=== PATIENT | male | born 1980 | race Caucasian/White ===

== ENCOUNTER 2016-08-20 13:31 | Emergency (ER) | payer BC ==
[2016-08-20 13:48] VITALS: BP 130/76
--- NOTE | 2016-08-20 15:01 | ED ---
Back Pain - HPI Summary HPI Summary: patient complains of intermittent bilateral flank pain X 2 weeks. he states it is worse on the L side and is usually worse upon wakening. denies urinary symptoms. pain does not radiate and feels like a deep ache. 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 denies other symptoms. denies fever, LYNNE , trauma or injury, weakness or limited ROM. denies health problems and takes no medications. this is the first time he has experienced this. - History of Current Complaint Chief Complaint: UCBackPain Stated Complaint: LOWER BACK PAIN Time Seen by Provider: 08/20/16 13:43 Hx Obtained From: Patient Onset/Duration: Sudden Onset Onset/Duration: Started Weeks Ago - 2 weeks ago Timing: Intermittent Back Pain Location: Is Discrete @ - left and right flank pain Pain Intensity: 5 Pain Scale Used: 0-10 Numeric Character: Sharp, Aching Aggravating Symptom(s): Movement Alleviating Symptom(s): Nothing Associated Signs And Symptoms: Positive: Negative - Risk Factors AAA Risk Factors: Negative TAD Risk Factors: Negative Cauda Equina Risk Factors: Negative Epidural Abscess Risk Factors: Negative - Allergies/Home Medications Allergies/Adverse Reactions: Allergies Allergy/AdvReac Type Severity Reaction Status Date / Time environmental Allergy Eyes Uncoded 08/20/16 13:48 Itchy/Swollen/Red/Watery Home Medications: Home Medications Beclomethasone Dipropionate (N [Qnasl] 80 mcg NA 08/20/16 [History] LevoCETirizine TAB (NF) [Xyzal TAB (NF)] 5 mg PO DAILY 08/20/16 [History Confirmed 08/20/16] Montelukast Sodium TAB* [Singulair TAB*] 10 mg PO DAILY 08/20/16 [History Confirmed 08/20/16] PMH/Surg Hx/FS Hx/Imm Hx Previously Healthy: Yes Endocrine/Hematology History: Denies: Hx Diabetes, Hx Thyroid Disease Cardiovascular History: Denies: Hx Hypertension Respiratory History: Denies: Hx Asthma, Hx Chronic Obstructive Pulmonary Disease (COPD) GI History: Denies: Hx Ulcer - Surgical History Surgery Procedure, Year, and Place: HERNIA REPAIR 2004 rt groin Infectious Disease History: No Infectious Disease History: Denies: Hx Hepatitis, Hx Human Immunodeficiency Virus (HIV), History Other Infectious Disease, Traveled Outside the [place] in Last 30 Days - Family History Known Family History: Positive: None - Social History Occupation: Employed Full-time Lives: Alone Alcohol Use: Occasionally Alcohol Amount: 1 beer today Substance Use Type: Reports: None Smoking Status (MU): Never Smoked Tobacco Review of Systems Constitutional: Negative Eyes: Negative ENT: Negative Cardiovascular: Negative Respiratory: Negative Positive: flank pain - bilateral - intermittent Musculoskeletal: Negative Skin: Negative Neurological: Negative Psychological: Normal All Other Systems Reviewed And Are Negative: Yes Physical Exam Triage Information Reviewed: Yes Vital Signs On Initial Exam: Initial Vitals Temp Pulse Resp BP Pulse Ox 97.9 F 73 16 130/76 98 08/20/16 13:43 08/20/16 13:43 08/20/16 13:43 08/20/16 13:43 08/20/16 13:43 Vital Signs Reviewed: Yes Appearance: Positive: Well-Appearing, No Pain Distress, Well-Nourished Skin: Positive: Warm Head/Face: Positive: Normal Head/Face Inspection Eyes: Positive: Normal, EOMI, PREMA ENT: Positive: Normal ENT inspection Neck: Positive: Supple, Nontender, No Lymphadenopathy Respiratory/Lung Sounds: Positive: Clear to Auscultation, Breath Sounds Present Cardiovascular: Positive: Normal, RRR Abdomen Description: Positive: Nontender, No Organomegaly, Soft, Other: - no CVA tenderness Bowel Sounds: Positive: Present Musculoskeletal: Positive: Normal Psychiatric: Positive: Normal, Affect/Mood Appropriate AVPU Assessment: Alert Diagnostics - Vital Signs Vital Signs Temp Pulse Resp BP Pulse Ox 08/20/16 13:43 97.9 F 73 16 130/76 98 - Laboratory Lab Statement: Any lab studies that have been ordered have been reviewed, and results considered in the medical decision making process. - CT No standard instances CT Interpretation: No Acute Changes CT Interpretation Completed By: Radiologist Back Pain Course/Dx - Course Course Of Treatment: Patient sent to CT for possible kidney stones. CT read as negative. Flexeril given for muscle pain and spasms bilaterally. Encouraged to take ibuprofen and moist heat on area. follow up as needed if symptoms persist. - Diagnoses Differential Diagnosis/HQI/PQRI: Positive: Renal Colic, Strain, Sprain Provider Diagnoses: Bilateral flank pain Discharge - Discharge Plan Condition: Stable Disposition: HOME Prescriptions: Cyclobenzaprine TAB* [Flexeril TAB*] 10 mg PO BID #15 tab Patient Education Materials: Acute Low Back Pain (ED) Referrals: No Primary Care Phys,NOPCP [Primary Care Provider] - Additional Instructions: Take medications as prescribed to you. No stone was visualized in the ureters or kidneys and otherwise normal CT scan. Follow up with your doctor if symptoms persist. Moist heat pack to area as needed for discomfort ibuprofen 600mg three times daily as needed for pain
--- NOTE | 2016-08-20 15:01 | RAD ---
INDICATION: Bilateral flank abdominal pain for 2 weeks. COMPARISON: There are no prior studies available for comparison. TECHNIQUE: A CT scan of the abdomen and pelvis was performed without intravenous or oral contrast. Contiguous axial sections were obtained from the lung bases through the symphysis pubis. Images were reconstructed in the coronal and sagittal planes. FINDINGS: The lung bases are clear. No pleural effusion is present. The liver and spleen are normal in size without significant focal abnormality on this noncontrast study. The gallbladder appears contracted. No calcified gallstones are seen. The pancreas is within normal limits in size. No ductal distention or calcifications are seen. The kidneys and adrenal glands are normal in size. No renal calculi are seen. There is a mildly prominent right extrarenal pelvis. No hydronephrosis is seen. No ureteral or bladder calculi are noted. The aorta is normal in caliber without significant calcific plaque. No significant enlarged retroperitoneal lymph nodes are seen. The stomach is filled with food debris. The stomach, small and large bowel appear nondistended. The appendix is within normal limits. There is mild to moderate descending and sigmoid diverticulosis without evidence for diverticulitis. There is a small periumbilical hernia containing fat. There is also a left inguinal hernia containing fat. No free intraperitoneal air or fluid is seen. No significant focal osseous abnormality is seen. IMPRESSION: 1. NO EVIDENCE FOR ACUTE FINDING OR CAUSE FOR THE PATIENT'S ABDOMINAL PAIN IS SEEN. 2. SMALL PERIUMBILICAL AND LEFT INGUINAL HERNIAS CONTAINING FAT.
== END 2016-08-20 15:19 | disposition home or self-care (01) ==
LOC: UCEAST 13:31
DX: M54.5 Low back pain (principal); K42.9 Umbilical hernia without obstruction or gangrene; K40.90 Unilateral inguinal hernia, without obstruction or gangrene, not specified as recurrent
CPT/HCPCS: 74176; 81002; 99212; G0463

== ENCOUNTER 2016-10-02 17:45 | Emergency (ER) | payer BC ==
[2016-10-02 18:18] VITALS: BP 148/84
--- NOTE | 2016-10-02 19:08 | UC ---
Throat Pain/Nasal Cruz HPI - HPI Summary HPI Summary: 1.5 WEEKS OF BILAT EAR PAIN AND SINUS/FACIAL PRESSURE. NO FEVER. NO COUGH - History of Current Complaint Chief Complaint: UCRespiratory Stated Complaint: SINUS COMPLAINT Time Seen by Provider: 10/02/16 18:15 Hx Obtained From: Patient Onset/Duration: Gradual Onset, Lasting Weeks, Still Present Severity: Moderate Cough: None Associated Signs & Symptoms: Positive: Hoarseness, Sinus Discomfort, Nasal Discharge - Epiglottits Risk Factors Epiglottis Risk Factors: Negative - Allergies/Home Medications Allergies/Adverse Reactions: Allergies Allergy/AdvReac Type Severity Reaction Status Date / Time environmental Allergy Eyes Uncoded 10/02/16 18:18 Itchy/Swollen/Red/Watery PMH/Surg Hx/FS Hx/Imm Hx Previously Healthy: Yes Endocrine History Of: Denies: Diabetes, Thyroid Disease Cardiovascular History Of: Denies: Cardiac Disorders, Hypertension Respiratory History Of: Denies: COPD, Asthma GI/ History Of: Denies: Ulcer - Surgical History Surgical History: Yes Surgery Procedure, Year, and Place: HERNIA REPAIR 2004 rt groin - Family History Known Family History: Positive: None Negative: Respiratory Disease - Social History Occupation: Employed Full-time Lives: With Family Alcohol Use: Rare Alcohol Amount: 1 beer today Substance Use Type: None Smoking Status (MU): Never Smoked Tobacco Review of Systems Constitutional: Negative Skin: Negative Eyes: Negative ENT: Ear Ache, Nasal Discharge Respiratory: Negative Cardiovascular: Negative Gastrointestinal: Negative Genitourinary: Negative Motor: Negative Neurovascular: Negative Musculoskeletal: Negative Neurological: Negative Psychological: Negative All Other Systems Reviewed And Are Negative: Yes Physical Exam Triage Information Reviewed: Yes Appearance: Well-Appearing, No Pain Distress, Well-Nourished Vital Signs: Initial Vital Signs Temp 98.3 F 10/02/16 18:14 Pulse 72 10/02/16 18:14 Resp 18 10/02/16 18:14 BP 148/84 10/02/16 18:14 Pulse Ox 100 10/02/16 18:14 Vital Signs Reviewed: Yes Eye Exam: Normal Eyes: Positive: Conjunctiva Clear ENT: Positive: Pharynx normal, Nasal congestion, TM bulging, TM dull, TM red - LEFT Dental Exam: Normal Neck exam: Normal Neck: Positive: Supple, Nontender, No Lymphadenopathy Respiratory Exam: Normal Respiratory: Positive: Chest non-tender, Lungs clear, Normal breath sounds, No respiratory distress, No accessory muscle use Cardiovascular Exam: Normal Cardiovascular: Positive: RRR, No Murmur, Pulses Normal, Brisk Capillary Refill Abdominal Exam: Normal Abdomen Description: Positive: Nontender, No Organomegaly Musculoskeletal Exam: Normal Musculoskeletal: Positive: Strength Intact, ROM Intact Neurological Exam: Normal Psychological Exam: Normal Psychological: Positive: Normal Response To Family Skin Exam: Normal Throat Pain/Nasal Course/Dx - Differential Dx/Diagnosis Differential Diagnosis/HQI/PQRI: Pharyngitis, Sinusitis, Tonsillitis, URI Provider Diagnoses: SINUSITIS Discharge - Discharge Plan Condition: Stable Disposition: HOME Prescriptions: Amoxicillin/Clavulanate TAB* [Augmentin TAB 875*] 875 mg PO BID #20 tab Patient Education Materials: Sinusitis (ED) Referrals: [facility] [Outside] No Primary Care Phys,NOPCP [Primary Care Provider] -
== END 2016-10-02 19:18 | disposition home or self-care (01) ==
LOC: UCEAST 17:45
DX: J32.9 Chronic sinusitis, unspecified (principal); R03.0 Elevated blood-pressure reading, without diagnosis of hypertension
CPT/HCPCS: 99212; G0463

== ENCOUNTER 2016-10-26 19:22 | Emergency (ER) | payer BC ==
[2016-10-26 20:34] VITALS: BP 143/90
--- NOTE | 2016-10-26 22:18 | UC ---
Rigoberto, DoctorDenita, scribed for Lois Solano MD on 10/26/16 at 2139 . General HPI - HPI Summary HPI Summary: 35 year old male arrived to [facility] [place] c/o bilateral inner thigh pain in the upper thighs near the groin for 5 days. Pt states that the left sided thigh pain went away 3 days ago, and now the pain in his right upper thigh is constant and severe and is keeping him awake. His pain is exacerbated when lying down, and he has been unable to sleep for the past two days. He describes his pain as constant and throbbing, like "blood is trying to go through but can't." He reports an increase in sedentary behavior from baseline but denies any recent long trips. No hx malignancy. He also denies any tingling, numbness, burning, radiation of pain, pain in the lower calves, genital pain, genital discharge, or testicular tenderness. He has PMHx of a hernia operation in right groin with mesh; no PMHx of FHx of DVT or PE. - History of Current Complaint Chief Complaint: UCLowerExtremity Stated Complaint: LEG PAIN Time Seen by Provider: 10/26/16 20:51 Hx Obtained From: Patient Onset/Duration: Gradual Onset, Lasting Days - onset 5 days [employer], Still Present, Worse Since - 2 days Timing: Constant Onset Severity: Moderate Current Severity: Moderate Pain Intensity: 5 - 0-10 Scale Pain Location at: right upper inner thigh Character: dull aching Aggravating: exacerbated when sleeping Associated Signs & Symptoms: Positive: Other - bilateral inner thigh pain near groin, now only right inner thigh pain x 2 days. Negative: Abdominal Pain, Dysuria, Fever, Trauma - Allergy/Home Medications Allergies/Adverse Reactions: Allergies Allergy/AdvReac Type Severity Reaction Status Date / Time environmental Allergy Eyes Uncoded 10/02/16 18:18 Itchy/Swollen/Red/Watery Home Medications: Home Medications Cetirizine HCl [Zyrtec Allergy 10 MG TAB] 10/26/16 [History] Ibuprofen [Kls Ibuprofen Ib] 200 mg PO 10/26/16 [History] Q-Nasal 10/26/16 [History] PMH/Surg Hx/FS Hx/Imm Hx Previously Healthy: Yes Endocrine History Of: Denies: Diabetes, Thyroid Disease Cardiovascular History Of: Denies: Cardiac Disorders, Hypertension, Deep Vein Thrombosis Respiratory History Of: Denies: COPD, Asthma GI/ History Of: Denies: Ulcer - Surgical History Surgical History: Yes Surgery Procedure, Year, and Place: HERNIA REPAIR 2004 rt groin - Family History Known Family History: Positive: Hypertension, Other - no FHx of DVT or PE Negative: Respiratory Disease - Social History Lives: With Family Alcohol Use: None Alcohol Amount: 1 beer today Substance Use Type: None Smoking Status (MU): Never Smoked Tobacco Have You Smoked in the Last Year: No Review of Systems Constitutional: Other - no fever Genitourinary: Negative, Other - no testicular/ pain, abnormal discharge Musculoskeletal: Other: - bilateral upper thigh pain near groin, now only right upper inner thigh pain Neurological: Negative Psychological: Negative All Other Systems Reviewed And Are Negative: Yes Physical Exam Triage Information Reviewed: Yes Appearance: Well-Appearing, Well-Nourished, Pain Distress Vital Signs: Initial Vital Signs Temp 98.1 F 10/26/16 20:24 Pulse 70 10/26/16 20:24 Resp 16 10/26/16 20:24 BP 143/90 10/26/16 20:24 Pulse Ox 98 10/26/16 20:24 Vital Signs Reviewed: Yes Eyes: Positive: Conjunctiva Clear ENT: Positive: Normal ENT inspection Neck: Positive: Supple Respiratory: Positive: Lungs clear, Normal breath sounds, No respiratory distress Cardiovascular: Positive: RRR, No Murmur, Pulses Normal, Brisk Capillary Refill Abdomen Description: Positive: No Organomegaly, Soft, Other: - Bilateral tenderness in right inner upper thigh region near groin; no tenderness in genitals. No testicular tenderness; normal circumcised penis without discharge.. Negative: Bruit, CVA Tenderness (R), CVA Tenderness (L), Distended , Guarding, Hernia @ - hernia scar RLQ, no femoral or inguinal hernias palpalble , Hepatomegaly, McBurney's Point Tenderness, Peritoneal Signs, Pulsatile Mass, Splenomegaly Bowel Sounds: Positive: Present, Other: - hernia scar RLQ (has known mesh RLQ) Musculoskeletal: Positive: Strength Intact, ROM Intact Neurological: Positive: Alert, Muscle Tone Normal Psychological Exam: Normal Skin Exam: Normal Course/Dx - Course Course Of Treatment: no US available at . Pt agrees to go by private car to [facility] [place] [facility] for further eval. Signs AMA form for ambulance. - Differential Dx - Multi-Symptom Differential Diagnoses: Other - DVT, hernia, muscle pull Provider Diagnoses: right thigh pain - Physician Notifications Discussed Patient Care With: 21:13 - discussed care of patient with Jessica Evans at [facility]. She agrees with treatment plan. Discharge - Discharge Plan Condition: Stable Disposition: AGAINST MEDICAL ADVICE Discharge Disposition Comment: Ambulatory at discharge. Pain rated 4/10. Referrals: uLana Novak MD [Primary Care Provider] - The documentation as recorded by the Doctor nichols Tahera accurately reflects the service I personally performed and the decisions made by me, Lois Solano MD.
== END 2016-10-26 21:25 | disposition left against medical advice (07) ==
LOC: UCEAST 19:22
DX: M79.651 Pain in right thigh (principal); R03.0 Elevated blood-pressure reading, without diagnosis of hypertension; Z53.21 Procedure and treatment not carried out due to patient leaving prior to being seen by health care provider
CPT/HCPCS: 99212; G0463

== ENCOUNTER 2016-10-26 21:36 | Emergency (ER) | payer BC ==
--- NOTE | 2016-10-26 22:27 | ED ---
Lower Extremity - HPI Summary HPI Summary: 35M presents with right thigh pain for 5 days. Pt had bilateral thigh pain that stopped three days ago. He states the pain is a dull ache. He says the pain is worst when he lays down. He describes it as feeling as if the blood can't get through. He denies any recent travel. He denies any pain in his calves, tingling, numbness. he is a nonsmoker. He does not have a personal or family history of blood clots. He denies any pain into his groin. - History of Current Complaint Chief Complaint: EDExtremityLower Stated Complaint: SENT FROM [facility] DVT Time Seen by Provider: 10/26/16 21:53 Pain Intensity: 5 - Allergies/Home Medications Allergies/Adverse Reactions: Allergies Allergy/AdvReac Type Severity Reaction Status Date / Time environmental Allergy Eyes Uncoded 10/26/16 22:24 Itchy/Swollen/Red/Watery PMH/Surg Hx/FS Hx/Imm Hx Endocrine/Hematology History: Denies: Hx Diabetes, Hx Thyroid Disease Cardiovascular History: Denies: Hx Hypertension Respiratory History: Denies: Hx Asthma, Hx Chronic Obstructive Pulmonary Disease (COPD) GI History: Denies: Hx Ulcer - Surgical History Surgery Procedure, Year, and Place: HERNIA REPAIR 2004 rt groin Infectious Disease History: No Infectious Disease History: Denies: Hx Hepatitis, Hx Human Immunodeficiency Virus (HIV), History Other Infectious Disease, Traveled Outside the in Last 30 Days - Family History Known Family History: Positive: None Negative: Respiratory Disease - Social History Alcohol Use: None Alcohol Amount: 1 beer today Substance Use Type: Reports: None Smoking Status (MU): Never Smoked Tobacco Have You Smoked in the Last Year: No Review of Systems Negative: Fever Negative: Chest Pain Negative: Shortness Of Breath Positive: Myalgia - right thing pain All Other Systems Reviewed And Are Negative: Yes Physical Exam Triage Information Reviewed: Yes Vital Signs On Initial Exam: Initial Vitals Temp Pulse Resp BP Pulse Ox 98.2 F 63 18 141/89 98 10/26/16 21:45 10/26/16 21:45 10/26/16 21:45 10/26/16 21:45 10/26/16 21:45 Vital Signs Reviewed: Yes Appearance: Positive: Well-Appearing Skin: Positive: Warm, Dry Head/Face: Positive: Normal Head/Face Inspection Eyes: Positive: Normal, Conjunctiva Clear Respiratory/Lung Sounds: Positive: Clear to Auscultation, Breath Sounds Present Cardiovascular: Positive: Normal, RRR Musculoskeletal: Positive: Strength/ROM Intact - of right thing and knee, Other - good pulses, nontender to palpation. Negative: Eloise Sign Left, Eloise Sign Right Diagnostics - Vital Signs Vital Signs Temp Pulse Resp BP Pulse Ox 10/26/16 21:45 98.2 F 63 18 141/89 98 - Laboratory Lab Statement: Any lab studies that have been ordered have been reviewed, and results considered in the medical decision making process. - Ultrasound No standard instances Ultrasound Interpretation: No Acute Changes - no DVT present Ultrasound Interpretation Completed By: Radiologist Lower Extremity Course/Dx - Course Course Of Treatment: 35M presents with right thigh pain for 5 days. states that it is worst at night. has no risk factors for DVT. was sent from for u/s. u/ s normal. discussed likely sprain and to take ibuprofen. told could try some muscle relaxers which has at home. told if develops a rash or anything to return. told to follow up with primary. patient understands and agrees with plan - Diagnoses Differential Diagnosis/HQI/PQRI: Positive: DVT, Fracture (Closed), Sprain, Strain Provider Diagnoses: Right thigh pain Discharge - Discharge Plan Condition: Good Disposition: HOME Referrals: Luana Novak MD [Primary Care Provider] - Additional Instructions: Take ibuprofen every 6 hours Follow up with primary within 5 days Return to ED if develop any fever, redness, or any new or worsening symptoms
[2016-10-27 00:13] VITALS: BP 132/92
--- NOTE | 2016-10-27 07:49 | RAD ---
INDICATION: Right thigh pain. COMPARISON: There are no prior studies available for comparison. TECHNIQUE: Multiple real-time, color flow and Doppler tracings of the right lower extremity were obtained. FINDINGS: The common femoral, femoral, profunda femoral and popliteal veins all demonstrate normal compressibility, augmentation with compression and phasic response with respiration. The posterior tibial and peroneal veins demonstrate normal compressibility and augmentation with compression. IMPRESSION: NO EVIDENCE FOR DEEP VENOUS THROMBOSIS.
== END 2016-10-27 00:12 | disposition home or self-care (01) ==
LOC: ED 21:36
DX: M79.651 Pain in right thigh (principal)
CPT/HCPCS: 99282

== ENCOUNTER 2016-12-18 19:35 | Emergency (ER) | payer BC ==
[2016-12-18 19:44] VITALS: BP 164/102
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
--- NOTE | 2016-12-18 20:31 | RAD ---
HISTORY: Subacute right shoulder injury COMPARISONS: None VIEWS: 3, Frontal internal rotation, external rotation, and outlet views of the right shoulder FINDINGS: BONE DENSITY: Normal. BONES: There is no displaced fracture. JOINTS: There is no arthropathy. ALIGNMENT: There is no dislocation. SOFT TISSUES: Unremarkable. OTHER FINDINGS: None. IMPRESSION: NO ACUTE OSSEOUS INJURY. IF SYMPTOMS PERSIST, RECOMMEND REPEAT IMAGING.
== END 2016-12-18 20:20 | disposition home or self-care (01) ==
LOC: UCEAST 19:35
DX: S49.81XA Other specified injuries of right shoulder and upper arm, initial encounter (principal); X50.0XXA Overexertion from strenuous movement or load, initial encounter; Y93.9 Activity, unspecified; Y99.9 Unspecified external cause status
CPT/HCPCS: 99211; G0463

== ENCOUNTER 2017-04-17 18:50 | Emergency (ER) | payer BC ==
[2017-04-17 18:54] VITALS: BP 128/77
[2017-04-17] MEDS ORDERED: Amoxicillin/Clavulanate TAB* 875 MG PO ONE (19:12)
--- NOTE | 2017-04-17 19:49 | UC ---
Throat Pain/Nasal Cruz HPI - HPI Summary HPI Summary: THREE DAYS OF SORE THROAT BODY ACHES FEVER. NO RASH OR ABDOMINAL PAIN - History of Current Complaint Chief Complaint: UCRespiratory Stated Complaint: THROAT PAIN Time Seen by Provider: 04/17/17 18:54 Hx Obtained From: Patient Onset/Duration: Gradual Onset, Lasting Days, Still Present Severity: Moderate Pain Intensity: 7 Pain Scale Used: 0-10 Numeric Cough: None Associated Signs & Symptoms: Positive: Dysphagia, Hoarseness, Fever - Epiglottits Risk Factors Epiglottis Risk Factors: Negative - Allergies/Home Medications Allergies/Adverse Reactions: Allergies Allergy/AdvReac Type Severity Reaction Status Date / Time environmental Allergy Eyes Uncoded 12/18/16 19:44 Itchy/Swollen/Red/Watery Home Medications: Home Medications Dextromethorphan-Phenylephrine [Day Time Multi-Symptom Co 10-5-325 mg] 2 cap 09/02 [History] PMH/Surg Hx/FS Hx/Imm Hx Previously Healthy: Yes - Surgical History Surgical History: Yes Surgery Procedure, Year, and Place: HERNIA REPAIR 2004 rt groin - Family History Known Family History: Positive: None, Hypertension, Other - no FHx of DVT or PE Negative: Respiratory Disease - Social History Occupation: Employed Full-time, Student Lives: With Family Alcohol Use: None Alcohol Amount: 1 beer today Substance Use Type: None Smoking Status (MU): Never Smoked Tobacco Have You Smoked in the Last Year: No Review of Systems Constitutional: Fever, Chills, Fatigue Skin: Negative Eyes: Negative ENT: Sore Throat Respiratory: Negative Cardiovascular: Negative Gastrointestinal: Negative Genitourinary: Negative Motor: Negative Neurovascular: Negative Musculoskeletal: Negative Neurological: Negative Psychological: Negative All Other Systems Reviewed And Are Negative: Yes Physical Exam Triage Information Reviewed: Yes Appearance: No Pain Distress, Well-Nourished, Ill-Appearing Vital Signs: Initial Vital Signs Temp 101.3 F 04/17/17 18:52 Pulse 82 04/17/17 18:52 Resp 18 04/17/17 18:52 BP 128/77 04/17/17 18:52 Pulse Ox 98 04/17/17 18:52 Vital Signs Reviewed: Yes Eye Exam: Normal ENT: Positive: Pharyngeal erythema, TMs normal, Tonsillar swelling, Tonsillar exudate Dental Exam: Normal Neck exam: Normal Neck: Positive: Supple, Nontender, No Lymphadenopathy Respiratory Exam: Normal Respiratory: Positive: Chest non-tender, Lungs clear, Normal breath sounds, No respiratory distress, No accessory muscle use Cardiovascular Exam: Normal Cardiovascular: Positive: RRR, No Murmur, Pulses Normal Abdominal Exam: Normal Abdomen Description: Positive: Nontender, No Organomegaly Musculoskeletal Exam: Normal Neurological Exam: Normal Psychological Exam: Normal Skin Exam: Normal Throat Pain/Nasal Course/Dx - Differential Dx/Diagnosis Differential Diagnosis/HQI/PQRI: Pharyngitis, Tonsillitis, URI Provider Diagnoses: STREP TONSILLITIS Discharge - Discharge Plan Condition: Stable Disposition: HOME Prescriptions: Amoxicillin/Clavulanate TAB* [Augmentin TAB 875*] 875 mg PO BID #20 tab Patient Education Materials: Strep Throat (ED) Referrals: [facility] [Outside] No Primary Care Phys,NOPCP [Primary Care Provider] - Additional Instructions: PRIMARY CARE: There are four major types of clinical preventive care: immunizations, screening , behavioral counseling (sometimes referred to as lifestyle changes), and chemoprevention. All four apply throughout the life span. It is important to establish and to have access to a Primary Care Physician, not only for follow- up regrding acute and chronic problems, but also for preventative care.
== END 2017-04-17 19:28 | disposition home or self-care (01) ==
LOC: UCEAST 18:50
DX: J03.00 Acute streptococcal tonsillitis, unspecified (principal)
CPT/HCPCS: 87651; 99212; A9270-GY; G0463

== ENCOUNTER 2017-05-26 19:55 | Emergency (ER) | payer BC ==
[2017-05-26 20:08] VITALS: BP 132/94
[2017-05-26] MEDS ORDERED: Clindamycin CAP* 150 MG PO ONE (20:43)
--- NOTE | 2017-05-26 21:05 | UC ---
Throat Pain/Nasal Cruz HPI - HPI Summary HPI Summary: THREE DAYS OF SORE THROAT BODY ACHES, MUSCLE STIFFNESS. HAD STREP ONE MONTH AGO , FEELS SIMILAR. LAST NIGHT HAD NIGHT SWEATS, FEVER. - History of Current Complaint Chief Complaint: UCRespiratory Stated Complaint: ST,HEAD & BODY ACHES,STIFF NECK Time Seen by Provider: 05/26/17 20:10 Hx Obtained From: Patient, Family/Stars Specialist Onset/Duration: Gradual Onset Severity: Moderate Associated Signs & Symptoms: Positive: Hoarseness, Fever - Epiglottits Risk Factors Epiglottis Risk Factors: Negative - Allergies/Home Medications Allergies/Adverse Reactions: Allergies Allergy/AdvReac Type Severity Reaction Status Date / Time environmental Allergy Eyes Uncoded 12/18/16 19:44 Itchy/Swollen/Red/Watery Home Medications: Home Medications Dextromethorphan-Phenylephrine [Daytime Cold & Flu Relief 10-5-325 mg] [History] PMH/Surg Hx/FS Hx/Imm Hx Previously Healthy: Yes - Surgical History Surgical History: Yes Surgery Procedure, Year, and Place: HERNIA REPAIR 2004 rt groin - Family History Known Family History: Positive: None, Hypertension, Other - no FHx of DVT or PE Negative: Respiratory Disease - Social History Occupation: Employed Full-time Lives: With Family Alcohol Use: None Alcohol Amount: 1 beer today Substance Use Type: None Smoking Status (MU): Never Smoked Tobacco Have You Smoked in the Last Year: No Review of Systems Constitutional: Fever, Chills Skin: Negative Eyes: Negative ENT: Sore Throat Respiratory: Negative Cardiovascular: Negative Gastrointestinal: Negative Genitourinary: Negative Motor: Negative Neurovascular: Negative Musculoskeletal: Negative Neurological: Negative Psychological: Negative All Other Systems Reviewed And Are Negative: Yes Physical Exam Triage Information Reviewed: Yes Appearance: No Pain Distress, Well-Nourished, Ill-Appearing Vital Signs: Initial Vital Signs Temp 98.5 F 05/26/17 20:02 Pulse 73 05/26/17 20:02 Resp 16 05/26/17 20:02 BP 132/94 05/26/17 20:02 Pulse Ox 99 05/26/17 20:02 Vital Signs Reviewed: Yes Eye Exam: Normal ENT: Positive: Pharyngeal erythema, TMs normal, Tonsillar swelling Dental Exam: Normal Neck exam: Normal Neck: Positive: Supple, Nontender, No Lymphadenopathy Respiratory Exam: Normal Respiratory: Positive: Chest non-tender, Lungs clear, Normal breath sounds, No respiratory distress, No accessory muscle use Cardiovascular Exam: Normal Cardiovascular: Positive: RRR, No Murmur, Pulses Normal Abdominal Exam: Normal Abdomen Description: Positive: Nontender, No Organomegaly, Soft Musculoskeletal Exam: Normal Neurological Exam: Normal Psychological Exam: Normal Psychological: Positive: Normal Response To Family Skin Exam: Normal Throat Pain/Nasal Course/Dx - Differential Dx/Diagnosis Differential Diagnosis/HQI/PQRI: Pharyngitis, Sinusitis, Tonsillitis, URI Provider Diagnoses: STREP TONSILLITIS Discharge - Discharge Plan Condition: Stable Disposition: HOME Prescriptions: Clindamycin Cap(NF) [Clindamycin Cap 300 mg Cap(NF)] 300 mg PO TID #30 cap Patient Education Materials: Strep Throat (ED) Referrals: [facility] [Outside] No Primary Care Phys,NOPCP [Primary Care Provider] -
== END 2017-05-26 21:20 | disposition home or self-care (01) ==
LOC: UCEAST 19:55
DX: J03.00 Acute streptococcal tonsillitis, unspecified (principal)
CPT/HCPCS: 87502; 87651; 99212; A9270-GY; G0463

== ENCOUNTER 2017-08-11 18:39 | Emergency (ER) | payer BC ==
--- NOTE | 2017-08-11 18:43 | UC ---
Respiratory Complaint HPI - HPI Summary HPI Summary: Pt presents with son and for <2 days of body aches, chills, cough, and right earache. He tells me he has been very stressed lately with schooling and thinks his immune system is "rock bottom". He has been taking ibuprofen with some relief. Has felt feverish, but did not have a thermometer to take his temp. Denies ST, sinus symptoms, SOB, chest pain, abdominal pain, N/V/D/C. - History of Current Complaint Stated Complaint: ACHES, CHILLS, EAR ACHE, AND COUGH Time Seen by Provider: 08/11/17 18:40 Hx Obtained From: Patient Onset/Duration: Gradual Onset Timing: Constant Severity Initially: Mild Severity Currently: Moderate Pain Intensity: 7 Pain Scale Used: 0-10 Numeric Character: Cough: Productive - Allergies/Home Medications Allergies/Adverse Reactions: Allergies Allergy/AdvReac Type Severity Reaction Status Date / Time environmental Allergy Eyes Uncoded 12/18/16 19:44 Itchy/Swollen/Red/Watery Home Medications: Home Medications Allergy Injections 1 inj IM MONTHLY 08/11/17 [History Confirmed 08/11/17] Beclomethasone Dipropionate (N [Qnasl] 1 spray NASAL DAILY 08/11/17 [History Confirmed 08/11/17] PMH/Surg Hx/FS Hx/Imm Hx Previously Healthy: Yes - Surgical History Surgical History: Yes Surgery Procedure, Year, and Place: HERNIA REPAIR 2004 rt groin - Family History Known Family History: Positive: None, Hypertension, Other - no FHx of DVT or PE Negative: Respiratory Disease - Social History Occupation: Employed Full-time Lives: With Family Alcohol Use: None Alcohol Amount: 1 beer today Substance Use Type: None Smoking Status (MU): Never Smoked Tobacco Have You Smoked in the Last Year: No Review of Systems Constitutional: Fatigue, Other - Body aches Skin: Negative Eyes: Negative ENT: Ear Ache Respiratory: Cough Cardiovascular: Negative Gastrointestinal: Negative Neurovascular: Negative Musculoskeletal: Negative Neurological: Negative Psychological: Negative All Other Systems Reviewed And Are Negative: Yes Physical Exam Triage Information Reviewed: Yes Appearance: Well-Nourished, Ill-Appearing Vital Signs Reviewed: Yes Eyes: Positive: Conjunctiva Clear, Other: - EOMI. PERRLA.. Negative: Conjunctiva Inflamed, Discharge ENT: Positive: Hearing grossly normal, Pharynx normal, TM bulging - Right ear, TM red - Right ear, Uvula midline. Negative: Pharyngeal erythema, Nasal congestion, Nasal drainage, Tonsillar swelling, Tonsillar exudate, Muffled voice , Hoarse voice, Sinus tenderness Neck: Positive: Supple, Nontender, No Lymphadenopathy Respiratory: Positive: Chest non-tender, Lungs clear, Normal breath sounds, No respiratory distress, No accessory muscle use Cardiovascular: Positive: RRR, No Murmur, Pulses Normal Abdomen Description: Positive: Nontender, No Organomegaly, Soft. Negative: CVA Tenderness (R), CVA Tenderness (L), Distended, Guarding, Hepatomegaly, Splenomegaly Bowel Sounds: Positive: Present Neurological: Positive: Alert Psychological: Positive: Age Appropriate Behavior Skin: Negative: rashes Respiratory Course/Dx - Course Course Of Treatment: Influenza rapid POC positive for influenza A. Has been <48 hours, will treat with Tamiflu 75mg BID for 5 days - Differential Dx/Diagnosis Differential Diagnosis/HQI/PQRI: Influenza, Lower Resp Infection Provider Diagnoses: Influenza A Discharge - Discharge Plan Condition: Stable Disposition: HOME Prescriptions: Amoxicillin PO (*) [Amoxicillin 500 MG CAP*] 500 mg PO Q12H #14 cap Oseltamivir CAP* [Tamiflu CAP*] 75 mg PO BID #10 cap Patient Education Materials: Influenza (ED) Referrals: No Primary Care Phys,NOPCP [Primary Care Provider] - Additional Instructions: If you develop a fever, SOB, chest pain, new or worsening symptoms - please call your PCP or go to the ED. 1) Rest and drink plenty of fluids! 2) Practice good hand hygiene and do not share food, drinks, or utensils. Please avoid infants, the elderly, and those who are immunocompromised (HIV, cancer, chemotherapy)
[2017-08-11 18:55] VITALS: BP 127/80
--- NOTE | 2017-08-11 19:55 | RAD ---
INDICATION: Cough. COMPARISON: There are no prior studies available for comparison. TECHNIQUE: Dual-energy PA and lateral views of the chest were obtained. FINDINGS: The heart is within normal limits in size. Mediastinal and hilar contours appear within normal limits. The lungs are clear. No pleural effusion is present. IMPRESSION: NO EVIDENCE FOR ACTIVE CARDIOPULMONARY DISEASE.
== END 2017-08-11 20:15 | disposition home or self-care (01) ==
LOC: UCEAST 18:39
DX: J09.X2 Influenza due to identified novel influenza A virus with other respiratory manifestations (principal); Z72.89 Other problems related to lifestyle
CPT/HCPCS: 71020; 87502; 99212; G0463

== ENCOUNTER 2018-06-10 19:56 | Emergency (ER) | payer BC ==
[2018-06-10 20:37] LABS: ABS Basophils 0 10^3/ul (0-0.2); ABS Eosinophils 0.1 10^3/ul (0-0.6); ABS Lymphocytes 1.4 10^3/ul (1.0-4.8); ABS Monocytes 0.4 10^3/ul (0-0.8); ABS Neutrophils 3.7 10^3/ul (1.5-7.7); ABS Nucleated RBC 0 10^3/ul; Eosinophil % 2.1 % (0-6); Hematocrit 44 % (42-52); Hemoglobin 15.2 g/dl (14.0-18.0); Lymphocyte % 24.5 % (25-47); Mean Corpuscular HGB Conc 35 g/dl (31-36); Mean Corpuscular Hemoglobin 31 pg (27-31); Mean Corpuscular Volume 90 fL (80-94); Mean Platelet Volume 8.7 um3 (7.4-10.4); Nucleated Red Blood Cells % 0.1; Platelet Count 188 10^3/ul (150-450); Red Blood Count 4.89 10^6/ul (4.00-5.40); Red Cell Distribution Width 13 % (10.5-15); White Blood Count 5.7 10^3/ul (3.5-10.8)
--- NOTE | 2018-06-10 20:41 | ED ---
HPI Chest Pain - HPI Summary HPI Summary: This patient is a 37 year old M presenting to [facility] accompanied by his with a chief complaint of intermittent mid sternal CP for the last week. This afternoon while at work the pain lasted 10 minutes which is longer than usual and during it he felt SOB and couldnt take deep breaths secondary to pain. This resolved and after the patient returned to work. Then throughout the rest of the day he had then 2-3 second episodes of CP that he has had for the last week. The patient rates the pain 5/10 in severity and states occasionally it will radite down his left arm. Symptoms aggravated by deep breath. Symptoms alleviated by spontaneous resolution. Patient reports SOB. Patient denies diaphoresis, fever, chills, LYNNE, ear pain, sore throat, blurred vision, double vision, neck pain, CP, ABD pain, back pain, dysuria, hematuria, blood in the stool, constipation, edema, bruising, and rashes. The long episode this afternoon occurred after a large meal but states that it did not feel like indigestion. 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 He also states that he has had CP in the past but he was told he was too young to have heart issues and there was no work up done. He took one 81mg ASA STEM FRAZER. Does not smoke. Grandfather of an NM in his 70s or 80s. - History of Current Complaint Chief Complaint: EDChestPainROMI Hx Obtained From: Patient Onset/Duration: Started Weeks Ago - 1, Still Present Timing: Intermittent, Lasting Seconds, Lasting Minutes Initial Severity: Moderate Current Severity: Mild Pain Intensity: 5 Pain Scale Used: 0-10 Numeric Chest Pain Location: Mid Sternal Chest Pain Radiates: Yes Chest Pain Radiates To:: Arm Character: Sharp/Stabbing Aggravating Factor(s): Deep Breaths Alleviating Factor(s): Spontaneous Resolution Associated Signs and Symptoms: Positive: Negative - diaphoresis, fever, chills, LYNNE, ear pain, sore throat, blurred vision, double vision, neck pain, CP, ABD pain, back pain, dysuria, hematuria, blood in the stool, constipation, edema, bruising, and rashes - Allergy/Home Medications Allergies/Adverse Reactions: Allergies Allergy/AdvReac Type Severity Reaction Status Date / Time environmental Allergy Eyes Uncoded 06/10/18 20:51 Itchy/Swollen/Red/Watery PMH/Surg Hx/FS Hx/Imm Hx Endocrine/Hematology History: Denies: Hx Diabetes, Hx Thyroid Disease Cardiovascular History: Denies: Hx Deep Vein Thrombosis, Hx Hypertension, Hx Rheumatic Fever Respiratory History: Denies: Hx Asthma, Hx Chronic Obstructive Pulmonary Disease (COPD) GI History: Denies: Hx Ulcer Musculoskeletal History: Denies: Hx Rheumatoid Arthritis - Surgical History Surgery Procedure, Year, and Place: HERNIA REPAIR 2004 rt groin Infectious Disease History: No Infectious Disease History: Denies: Hx Clostridium Difficile, Hx Hepatitis, Hx Human Immunodeficiency Virus (HIV), Hx of Known/Suspected MRSA, Hx Shingles, Hx Tuberculosis, Hx Known/ Suspected VRE, Hx Known/Suspected VRSA, History Other Infectious Disease, Traveled Outside the [place] in Last 30 Days - Family History Known Family History: Positive: Cardiac Disease, Hypertension, Other - no FHx of DVT or PE Negative: Respiratory Disease - Social History Occupation: Employed Full-time Lives: With Family Alcohol Use: None Alcohol Amount: 1 beer today Substance Use Type: Reports: None Smoking Status (MU): Never Smoked Tobacco Have You Smoked in the Last Year: No Review of Systems Negative: Fever, Chills, Skin Diaphoresis Negative: Blurred Vision Negative: Sore Throat, Ear Ache Positive: Chest Pain Positive: Shortness Of Breath Gastrointestinal: Negative - blood in the stool, constipation, Positive: Nausea. Negative: Abdominal Pain Negative: dysuria, hematuria Musculoskeletal: Negative - neck pain and back pain Negative: Edema Negative: Rash, Bruising Negative: Headache All Other Systems Reviewed And Are Negative: No Physical Exam - Summary Physical Exam Summary: Appearance: Alert, conversive, nontoxic appearing Skin: Warm, dry, no mottling, no rashes, no contusions HEENT: EOMI, PERRL, moist mucous membranes Neck: No masses on the neck, supple Respiratory: Clear to auscultation, breath sounds present, no rales, no rhonchi , no wheezes Cardiovascular: RRR, pulses are symmetrical in both lower and upper extremities Abdomen: Soft, non-tender Bowel Sounds: Present Musculoskeletal: No CVA tenderness, no obvious deformity, moving all extremities in a grossly normal manner Neurological: A&Ox3, CN II-XII Intact, moving all extremities symmetrically Psychiatric: Normal affect and mood Triage Information Reviewed: Yes Vital Signs On Initial Exam: Initial Vitals Temp Pulse Resp BP Pulse Ox 98.0 F 70 15 125/88 99 06/10/18 19:59 06/10/18 19:59 06/10/18 19:59 06/10/18 19:59 06/10/18 19:59 Vital Signs Reviewed: Yes Diagnostics - Vital Signs Vital Signs Temp Pulse Resp BP Pulse Ox 06/10/18 19:59 98.0 F 70 15 125/88 99 - Laboratory Lab Results: Lab Results 06/10/18 Range/Units 20:27 WBC 5.7 (3.5-10.8) 10^3/ul RBC 4.89 (4.00-5.40) 10^6/ul Hgb 15.2 (14.0-18.0) g/dl Hct 44 (42-52) % MCV 90 (80-94) fL MCH 31 (27-31) pg MCHC 35 (31-36) g/dl RDW 13 (10.5-15) % Plt Count 188 (150-450) 10^3/ul MPV 8.7 (7.4-10.4) um3 Neut % (Auto) 65.2 (38-83) % Lymph % (Auto) 24.5 L (25-47) % Mchenry % (Auto) 7.4 H (0-7) % Eos % (Auto) 2.1 (0-6) % Baso % (Auto) 0.8 (0-2) % Absolute Neuts (auto) 3.7 (1.5-7.7) 10^3/ul Absolute Lymphs (auto) 1.4 (1.0-4.8) 10^3/ul Absolute Monos (auto) 0.4 (0-0.8) 10^3/ul Absolute Eos (auto) 0.1 (0-0.6) 10^3/ul Absolute Basos (auto) 0 (0-0.2) 10^3/ul Absolute Nucleated RBC 0 10^3/ul Nucleated RBC % 0.1 Result Diagrams: 06/10/18 20:27 06/10/18 20:27 Lab Statement: Any lab studies that have been ordered have been reviewed, and results considered in the medical decision making process. - Radiology CXR Radiology Interpretation Completed By: ED Physician - no acute disease. Pending official report. - EKG 2001 Cardiac Rate: NL EKG Rhythm: Sinus Rhythm - at 70 BPM Summary of EKG Findings: 1 and AVL there is a slight st elevation, WI depression in V4, V5, and V6. 2303 Cardiac Rate: NL EKG Rhythm: Sinus Rhythm - at 60 BPM Summary of EKG Findings: normal QRS, normal QTC, normal axis, diffuse ST elevation in 1 AVL, V4 v5 v6, WI depression V4 V5 V6 Re-Evaluation - Re-Evaluation First Eval Re-Evaluation Time: 21:55 Change: Improved Comment: I informed the patient of lab and imaging results. He is not having chest pain currently. Second Eval Re-Evaluation Time: 23:59 Change: Unchanged Comment: I discussed the secondary EKG with the patient and informed him what he can take to relief his sx which are most consistent with pericarditis Chest Pain Course/Dx - Course Assessment/Plan: This patient is a 37 year old M presenting to [facility] accompanied by his with a chief complaint of intermittent mid sternal CP for the last week. This afternoon while at work the pain lasted 10 minutes which is longer than usual and during it he felt SOB and couldnt take deep breaths secondary to pain. This resolved and after the patient returned to work. Then throughout the rest of the day he had then 2-3 second episodes of CP that he has had for the last week. The patient rates the pain 5/10 in severity and states occasionally it will radite down his left arm. Symptoms aggravated by deep breath. Symptoms alleviated by spontaneous resolution. Patient reports SOB. Patient denies diaphoresis, fever, chills, LYNNE, ear pain, sore throat, blurred vision, double vision, neck pain, CP, ABD pain, back pain, dysuria, hematuria, blood in the stool, constipation, edema, bruising, and rashes. The long episode this afternoon occurred after a large meal but states that it did not feel like indigestion. 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 He also states that he has had CP in the past but he was told he was too young to have heart issues and there was no work up done. He took one 81mg ASA STEM FRAZER. Does not smoke. Grandfather of an NM in his 70s or 80s. An EKG reveals NSR, 1 and AVL there is a slight st elevation, WI depression in V4, V5, and V6. Repeat EKG NSR normal QRS, normal QTC, normal axis, diffuse ST elevation in 1 AVL, V4 v5 v6 , WI depression V4 V5 V6. CXR reveals, no acute disease. Pending official report. The patients D dimes in WNL and his CBC is normal. Dx pericarditis. Patient will be discharged and the patient was given information to establish a primary care provider. The patient is agreeable with this plan. - Diagnoses Provider Diagnoses: Pericarditis Discharge - Sign-Out/Discharge Documenting (check all that apply): Patient Departure - Discharge Plan Condition: Stable Disposition: HOME Prescriptions: Ibuprofen TAB* [Motrin TAB* 800 MG] 800 mg PO Q8HR #60 tab MDD 3 Patient Education Materials: Chest Pain (ED), Acute Pericarditis (ED) Forms: *Work Release Referrals: [facility] [Provider Group] Additional Instructions: Please establish care with a primary care physician next week. return if worse or any new symptoms. Avoid any heavy lifting or straining. I have given you a referral to a primary care physician group. - Billing Disposition and Condition Condition: STABLE Disposition: Home - Attestation Statements Document Initiated by Anastasiiaibe: Yes Documenting Scribe: Yair Ragsdale Provider For Whom Scribe is Documenting (Include Credential): Kathy Miranda MD Scribe Attestation: I, Yair Ragsdale, scribed for Kathy Miranda MD on 06/11/18 at 0636. Scribe Documentation Reviewed: Yes Provider Attestation: The documentation as recorded by the Yair nichols accurately reflects the service I personally performed and the decisions made by me, Kathy Miranda MD
[2018-06-10 20:54] LABS: EGFR Non-African American 92.1 (>60)
[2018-06-11 01:07] VITALS: BP 121/74
--- NOTE | 2018-06-11 07:25 | RAD ---
INDICATION: Chest pain. COMPARISON: Comparison is made with a prior study from August 11, 2017. TECHNIQUE: A portable view of the chest was obtained. FINDINGS: Cardiac and mediastinal contours appear to be within normal limits. The lungs are clear. No pleural effusion is seen. IMPRESSION: NO EVIDENCE FOR ACUTE DISEASE. R0
== END 2018-06-11 01:07 | disposition home or self-care (01) ==
LOC: ED 19:56
DX: I31.9 Disease of pericardium, unspecified (principal); R11.0 Nausea; R07.9 Chest pain, unspecified; R06.02 Shortness of breath
CPT/HCPCS: 36415; 71045; 80053; 83735; 84484; 85025; 85379; 93005; 99283

== ENCOUNTER → 2018-08-24 08:21 | Day surgery (SDC) | payer BC ==
--- NOTE | 2018-08-03 09:37 | HP ---
CC: Stephon Claros, YUMIKO, TILE CONDUIT LAYER * ADMISSION HISTORY AND PHYSICAL: DATE OF ADMISSION: 08/24/18 ATTENDING SURGEON: Dr. Anthony Campos.* (DICTATED BY MONAE LOPEZ) CHIEF COMPLAINT: Left inguinal hernia. HISTORY OF PRESENT ILLNESS: This is a generally healthy 37-year-old male who in March 2018 noted left groin swelling accompanied by pain that was particularly exacerbated by activity. He states that since that time he notices pain or discomfort especially if he is standing for long periods or with certain activities such as walking through deep snow. He has had a couple events where pain was sufficient to require him to assume a supine position, but generally if he is in a seated or relaxed position, the pain abates and he has not had anything to suggest true incarceration or strangulation. He has noticed occasional gurgling in the left groin. No other change in bowel or bladder habits. He has undergone a prior open repair of right inguinal hernia in 2006. He was seen in the office by Dr. Campos on 04/22/18 at which time exam confirmed a reducible left inguinal hernia with moderate to severe tenderness as well as a well healed scar in the right groin with no evidence of recurrence. Dr. Campos has recommended repair and has discussed with him the indications, risks, benefits, and alternatives as well as the methods for approach, open versus laparoscopic. He would like to proceed as scheduled with laparoscopic repair left inguinal hernia with mesh. PAST MEDICAL HISTORY: Some environmental allergies, erectile dysfunction. Recent history of possible pericarditis (chest pain) that did last for a couple of months, but seemed to be relieved by high doses of ibuprofen which is no longer requiring (see separate attached Cardiology note from Dr. Scales). PAST SURGICAL HISTORY: His only prior surgery was an open right inguinal hernia repair as noted above. No anesthesia problems reported other than that he seemed to require additional medication to achieve a desired level of sedation. CURRENT MEDICATIONS: 1. Cialis, dose not specified p.r.n. 2. He takes multivitamin once daily and vitamin D supplement. 3. He receives allergy injections on a weekly basis. 4. He uses Qnasl 2 sprays each nostril once daily. DRUG ALLERGIES: None (he did have depression symptoms related to montelukast, which he no longer takes). FAMILY HISTORY: Negative for anesthesia problems, bleeding, or clotting disorders. SOCIAL HISTORY: The patient is . He has 3 children. He is a self- employed contractor. He denies use of tobacco. He drinks on average less than or up to 1 drink per day. He denies any other recreational drug use. REVIEW OF SYSTEMS: General: No recent constitutional symptoms or acute illnesses other than described in the HPI. His weight has been stable. HEENT: No problems reported. Cardiovascular: Remote history of a murmur as a child , but not in recent years. Recent left-sided chest pain, which was fully worked up and followed up by Cardiology with some question of pericarditis versus musculoskeletal pain (see separate note from Dr. Scales). No history of hypertension. Respiratory: No history of asthma, chronic cough, or shortness of breath. He does have year-round environmental allergies. GI: No nausea or vomiting. No change in bowels. : No problems reported. Endocrine: No diabetes or thyroid dysfunction. Musculoskeletal: No additions. Neuropsych: No additions. Remainder of review of systems is negative. PHYSICAL EXAMINATION GENERAL: Well-nourished, well-developed male, in no acute distress. VITAL SIGNS: Height 74 inches, weight 200 pounds, temperature 97.4, blood pressure 100/72, pulse 74, respirations 16. HEENT: Pupils are equal, round, and reactive. EOMs intact. No conjunctival pallor. Oropharynx, mucous membranes moist, teeth in good repair. No intraoral lesions. NECK: No lymphadenopathy, thyromegaly, or masses. LUNGS: Clear to auscultation. No wheezes. HEART: Regular rate and rhythm. No murmur noted. ABDOMEN: Soft, nontender to palpation, though exam is somewhat limited as the patient has quite a bit of involuntary guarding and is unable to totally relax. Right inguinal scar and left inguinal hernia by Dr. Campos' exam as noted above. EXTREMITIES: No edema. RECTAL: Not done. NEUROLOGIC: Grossly intact. SKIN: Warm and dry. No suspicious rashes or lesions noted. GENITALIA: Not reexamined. BACK: No spinous process or CVA tenderness. IMPRESSION: Left inguinal hernia. PLAN: Laparoscopic repair of left inguinal hernia with mesh. MONAE LOPEZ [id number]/[facility] #: [id number] CABRINI MEDICAL CENTERAlyssia
[~2018-08-24 08:21] MED LIST: Buffered Lidocaine 0.9% SYRIN* 5 ML/SYR SYRINGE INTRADERM ONE; Bupivacaine 0.25% W/EPI* 10 ML SDV ONE; Dexamethasone IV* 4 MG/ML 1 ML (4 MG) IV SLOW PU ONE; Dexamethasone IV* 4 MG/ML 1 ML (4 MG) ONE; DiMENhydriNATE IV* 50 MG/ML VIAL IV PUSH PRN; Famotidine IV* 10 MG/ML 2 ML (20 mg) IV ONE; Famotidine IV* 10 MG/ML 2 ML (20 mg) ONE; Ibuprofen TAB* 600 MG ONE; Ketorolac INJ* 30 MG/ML 1 ML VIAL ONE; Lactated Ringers 1000 ML Bag* 1,000 ML IV SCH; Lidocaine 2% PF * 5 ML VIAL ONE; Midazolam* 1 MG/ML 2 ML VIAL (2 MG) ONE; Naloxone* 0.4 MG/ML 1 ML VIAL IV PRN; Ondansetron INJ* 2 MG/ML VIAL ONE; Propofol* 10 MG/ML 20 ML BTL ONE; Rocuronium* 10 MG/ML VIAL ONE; Sugammadex * 200 MG/2 ML VIAL IV PUSH ONE; ceFAZolin 2 GM PREMIX in ORs 2 GM/50 ML BAG IVPB ONE; fentaNYL* 50 MCG/ML 2 ML VIAL (100 MCG VIAL) IV PRN; fentaNYL* 50 MCG/ML 2 ML VIAL (100 MCG VIAL) ONE
--- NOTE | 2018-08-24 13:54 | OP ---
Operative Report - Blank - Operative Report Date of Operation: 08/24/18 Note: Brief Operative Note Preop Dx: Left Inguinal Hernia Postop Dx: same,indirect Procedure: Laparoscopic repair LIH w/ mesh Anesthesia: GET Surgeon: Andres Culinary Instructor: MONAE Jacinto; ROGELIO Wood Fluids: 1000 ml RL EBL: none Specimen: none Drains: none Findings: dictated
[2018-08-24 15:43] VITALS: BP 139/92
--- NOTE | 2018-08-24 21:29 | OP ---
CC: Stephon Claros NP * DATE OF OPERATION: 08/24/18 - [facility] DATE OF : 78 SURGEON: Anthony Campos MD STOPER: MONAE Dias. ANESTHESIOLOGIST: Dr. Ru Alva. ANESTHESIA: General endotracheal. PRE-OPERATIVE DIAGNOSIS: Left inguinal hernia. POST-OPERATIVE DIAGNOSIS: Left inguinal hernia. OPERATIVE PROCEDURE: Laparoscopic preperitoneal repair left inguinal hernia with mesh (total extraperitoneal repair). ESTIMATED BLOOD LOSS: None. IV FLUIDS: 1 L crystalloid. SPECIMEN: None. DRAINS: None. COMPLICATIONS: None. COUNTS: Needle, instrument, and sponge counts were correct. DESCRIPTION OF PROCEDURE: The patient was brought to the operating room and placed on the table supine. Sequential compression devices were placed on both lower extremities. General anesthesia was administered. The abdomen was prepped and draped in the usual sterile fashion. Time-out was performed. Prior to this he did have a Alegria catheter placed. He did also receive appropriate intravenous antibiotics. Local anesthetic was infiltrated into the skin and soft tissue at the umbilical site and a curvilinear infraumbilical incision was created. The anterior rectus fascia was identified to the left of midline and incised transversely and the underlying muscles retracted laterally. Then a preperitoneal balloon dissector was positioned down the pubic symphysis and insufflated under direct visualization. The balloon was removed and a 12 mm blunt port was placed and carbon dioxide was insufflated to a pressure of 10 mmHg. Under direct visualization two 5 mm trocars were placed in lower midline. The dissection then proceeded from the midline laterally identifying pubic symphysis and the inferior epigastric vessels, which were preserved anteriorly. There was a small direct inguinal hernia containing fat that was reduced. There was also a moderate sized indirect inguinal hernia with a sac that was entered during the dissection. There was identified omentum stuck within the sac, which was freed ; and, after this reduced, the sac was able to be from the spermatic cord structures preserving them. The sac was closed with an Endoloop as well as endoscopic clip placement. The dissection then proceeded laterally to the anterior superior iliac spine. After completing the full dissection, repair was performed with a large Bard 3DMax mesh for the left side. The mesh was fixated with a single CapSure tack at the pubic symphysis. The insufflation was then released under direct visualization ensuring that the mesh lay in good position. In order to determine if there was any peritoneal exposure, the peritoneum was entered through a small umbilical hernia by repositioning the 12 mm blunt port within the peritoneal cavity and insufflating to a pressure of 15 mmHg. Visualization of the inguinal region was performed. There was a small rent in the peritoneum, which was subsequently closed with the use of endoscopic clip after replacing the upper 5 mm port into the peritoneal cavity. Having completed this, the carbon dioxide was released and the ports were removed. The umbilical hernia was closed with 0-Ethibond suture in [id number] fashion to approximate it. The umbilical stalk was reapproximated to the anterior abdominal wall with 3-0 Vicryl suture and then the skin incisions were all closed with 4-0 Monocryl in subcuticular fashion. Steri-Strips were applied. The patient tolerated the procedure well, was extubated and transferred to recovery in stable condition. [id number]/[facility] #: [id number] MARIELLE
== END | disposition home or self-care (01) ==
LOC: OR 08:21
PROVIDERS: ATTEND Surgery
DX: K40.90 Unilateral inguinal hernia, without obstruction or gangrene, not specified as recurrent (principal); J30.89 Other allergic rhinitis; N52.9 Male erectile dysfunction, unspecified
CPT/HCPCS: A9270-GY; C1781; J0690; J1100; J1885; J2250; J2405; J2704; J3010

== ENCOUNTER 2018-10-10 09:45 | Emergency (ER) | payer BC ==
[2018-10-10 09:59] VITALS: BP 111/74
--- NOTE | 2018-10-10 10:28 | UC ---
Throat Pain/Nasal Cruz HPI - HPI Summary HPI Summary: has had worsening sinus congestion and facial pain for over 3 weeks. OTC sinus and cold meds not helping. last HS had diff sleeping d/t congestion states he gets a sinus infection every year in Sep - History of Current Complaint Chief Complaint: UCGeneralIllness Stated Complaint: SINUS PRESSURE/DIZZY Time Seen by Provider: 10/10/18 09:55 Hx Obtained From: Patient Onset/Duration: Gradual Onset Severity: Moderate Pain Intensity: 6 Cough: None Associated Signs & Symptoms: Positive: Sinus Discomfort, Nasal Discharge - Allergies/Home Medications Allergies/Adverse Reactions: Allergies Allergy/AdvReac Type Severity Reaction Status Date / Time environmental Allergy Eyes Uncoded 10/10/18 09:59 Itchy/Swollen/Red/Watery Home Medications: Home Medications Ibuprofen TAB* [Motrin TAB* 800 MG] 400 mg PO Q4H PRN 10/10/18 [History Confirmed 10/10/18] LevoCETirizine TAB (NF) [Xyzal TAB (NF)] 5 mg PO DAILY 10/10/18 [History Confirmed 10/10/18] PMH/Surg Hx/FS Hx/Imm Hx Previously Healthy: Yes - Surgical History Surgical History: Yes Surgery Procedure, Year, and Place: HERNIA REPAIR 2004 rt groin. Aug 2018 - three hernia repairs - Family History Known Family History: Positive: None, Cardiac Disease, Hypertension, Other - no FHx of DVT or PE Negative: Respiratory Disease - Social History Occupation: Employed Full-time Lives: With Family Alcohol Use: Rare Alcohol Amount: 1 beer today Substance Use Type: None Smoking Status (MU): Never Smoked Tobacco Have You Smoked in the Last Year: No Review of Systems All Other Systems Reviewed And Are Negative: Yes Constitutional: Positive: Fatigue Skin: Positive: Negative Eyes: Positive: Negative ENT: Positive: Ear Ache - R, Sinus Congestion, Sinus Pain/Tenderness Respiratory: Positive: Negative Cardiovascular: Positive: Negative Musculoskeletal: Positive: Negative Neurological: Positive: Negative Psychological: Positive: Negative Is Patient Immunocompromised?: No Physical Exam Triage Information Reviewed: Yes Appearance: Well-Appearing, No Pain Distress, Well-Nourished Vital Signs: Initial Vital Signs Temp 98.2 F 10/10/18 09:56 Pulse 86 10/10/18 09:56 Resp 16 10/10/18 09:56 BP 111/74 10/10/18 09:56 Pulse Ox 97 10/10/18 09:56 Vital Signs Reviewed: Yes Eyes: Positive: Conjunctiva Clear ENT: Positive: Nasal congestion, Nasal drainage, TM dull - R TM injected and dull, Sinus tenderness Neck exam: Normal Neck: Positive: Nontender, No Lymphadenopathy Respiratory Exam: Normal Respiratory: Positive: Lungs clear Cardiovascular Exam: Normal Neurological Exam: Normal Psychological Exam: Normal Skin Exam: Normal Throat Pain/Nasal Course/Dx - Differential Dx/Diagnosis Differential Diagnosis/HQI/PQRI: Influenza, Otitis Media, Pharyngitis, Sinusitis Provider Diagnosis: Sinusitis Discharge - Sign-Out/Discharge Documenting (check all that apply): Patient Departure All imaging exams completed and their final reports reviewed: No Studies - Discharge Plan Condition: Good Disposition: HOME Prescriptions: Cefdinir [Cefdinir 300 MG CAP] 300 mg PO BID #20 capsule Patient Education Materials: Sinusitis (ED) Referrals: Stephon Claros, MEDICAL ANTHROPOLOGY DIRECTOR [Primary Care Provider] - 3 Days (if no better) Additional Instructions: rest and drink plenty of fluids start cefdinir antibiotic sudafed from behind the counter to help with nasal congestion - Billing Disposition and Condition Condition: GOOD Disposition: Home - Attestation Statements Provider Attestation: I was available for consult. This patient was seen by the JANET. The patient was not presented to , seen by or examined by me Rosalio Lindsey MD
== END 2018-10-10 10:36 | disposition home or self-care (01) ==
LOC: UCEAST 09:45
DX: J32.9 Chronic sinusitis, unspecified (principal); R42 Dizziness and giddiness; Z91.09 Other allergy status, other than to drugs and biological substances
CPT/HCPCS: 99212; G0463

== ENCOUNTER 2018-12-10 11:32 | Emergency (ER) | payer OTHER ==
[2018-12-10 12:20] VITALS: BP 120/80
--- NOTE | 2018-12-10 13:08 | UC ---
UC General HPI - HPI Summary HPI Summary: 38 yo gentleman c/o ear pain, sinus pain last 3 days, prog worse. Hx ear and sinus infections, most recently this past winter. No fever / chills. + sinus pressure / pain. Has been taking pseudofed, minimal relief. Feels like water in the ears. No rash. No sob/cp. No GI issues. Recent trip out of [facility], but did not swim much. Does swim here in [place] though. - History of Current Complaint Chief Complaint: UCEar Stated Complaint: EAR PAIN BOTH Time Seen by Provider: 12/10/18 13:05 Hx Obtained From: Patient Pain Intensity: 3 - Allergy/Home Medications Allergies/Adverse Reactions: Allergies Allergy/AdvReac Type Severity Reaction Status Date / Time environmental Allergy Eyes Uncoded 12/10/18 12:20 Itchy/Swollen/Red/Watery PMH/Surg Hx/FS Hx/Imm Hx Previously Healthy: Yes - Surgical History Surgical History: Yes Surgery Procedure, Year, and Place: HERNIA REPAIR 2004 rt groin. Aug 2018 - three hernia repairs - Family History Known Family History: Positive: None, Cardiac Disease, Hypertension, Other - no FHx of DVT or PE Negative: Respiratory Disease - Social History Alcohol Use: Rare Alcohol Amount: 1 beer today Substance Use Type: None Smoking Status (MU): Never Smoked Tobacco Have You Smoked in the Last Year: No - Immunization History Most Recent Tetanus Shot: 04/06/11 Hx Tetanus, Diphtheria Vaccination: No Review of Systems All Other Systems Reviewed And Are Negative: Yes Constitutional: Positive: Negative Skin: Positive: Negative Eyes: Positive: Negative ENT: Positive: Ear Ache, Nasal Discharge, Sinus Congestion Respiratory: Positive: Cough - mild post nasal Cardiovascular: Positive: Negative Gastrointestinal: Positive: Negative Genitourinary: Positive: Negative Motor: Positive: Negative Neurovascular: Positive: Negative Musculoskeletal: Positive: Negative Neurological: Positive: Negative Psychological: Positive: Negative Is Patient Immunocompromised?: No Physical Exam Triage Information Reviewed: Yes Appearance: Well-Appearing, Well-Nourished Vital Signs: Initial Vital Signs Temp 97.8 F 12/10/18 12:18 Pulse 79 12/10/18 12:18 Resp 16 12/10/18 12:18 BP 120/80 12/10/18 12:18 Pulse Ox 99 12/10/18 12:18 Vital Signs Reviewed: Yes Eye Exam: Normal ENT: Positive: Pharynx normal - mild redness, but c/w post nasal drip + subj L max sinus tenderness, Nasal congestion, Other - EAC's both clear - no wax. No exudate. TM's intact as visible. There scarring on both TM's. Both TM's red. R TM bright red, bulging. Neck exam: Normal Neck: Positive: Supple, Nontender, No Lymphadenopathy Respiratory Exam: Normal Respiratory: Positive: Chest non-tender, Lungs clear, Normal breath sounds, No respiratory distress, No accessory muscle use Cardiovascular Exam: Normal Cardiovascular: Positive: RRR, No Murmur, Pulses Normal, Brisk Capillary Refill Abdominal Exam: Normal Abdomen Description: Positive: Nontender Musculoskeletal Exam: Normal - gait steady Neurological Exam: Normal - grossly nonfocal Psychological Exam: Normal - conversing easily and appropriately Skin Exam: Normal - no visible or reported rash Course/Dx - Course Course Of Treatment: Reviewed coa / tx plan. Questions as posed answered to the best of my ability. - Diagnoses Provider Diagnosis: Bacterial ear infection, bilateral Discharge - Sign-Out/Discharge Documenting (check all that apply): Patient Departure All imaging exams completed and their final reports reviewed: No Studies - Discharge Plan Condition: Stable Disposition: HOME Prescriptions: Ciprofloxacin TAB* [Cipro 500 MG TAB*] 500 mg PO BID 10 Days #20 tab Patient Education Materials: Ear Infection (ED) Referrals: Stephon Claros NP [Primary Care Provider] - Additional Instructions: Follow up with your primary care physician, per routine. Seek medical attention for worse or new problems. - Billing Disposition and Condition Condition: STABLE Disposition: Home
== END 2018-12-10 13:37 | disposition home or self-care (01) ==
LOC: UCEAST 11:32
DX: H66.93 Otitis media, unspecified, bilateral (principal); R05 Cough; R09.82 Postnasal drip; R09.81 Nasal congestion
CPT/HCPCS: 99212; G0463